=== PATIENT | male | born 1985 | race Asian ===

== ENCOUNTER 2021-12-06 16:38 | Emergency (ER) | payer MEDICAID ==
[~2021-12-06] VITALS: Ht 172.7 cm; Wt 71.0 kg
[2021-12-06 18:53] VITALS: BP 133/91
== END 2021-12-07 02:53 | disposition left against medical advice (07) ==
LOC: ER 16:43
DX: K62.5 Hemorrhage of anus and rectum (principal); Z53.21 Procedure and treatment not carried out due to patient leaving prior to being seen by health care provider

== ENCOUNTER 2021-12-07 04:09 | Emergency (ER) | payer MEDICAID ==
[~2021-12-07] VITALS: Ht 172.7 cm; Wt 71.0 kg
[2021-12-07] MEDS ORDERED: normal saline 1000ML IV soln IVB ONE (04:50)
[2021-12-07] MEDS ORDERED: iohexol 300mg/ml 100ml inj. ONE (05:05)
--- NOTE | 2021-12-07 05:45 | NUR ---
Given sugar in rectum - patient hemorrhoids observed mild-moderately shrinking from initial assessment. Doctor notified and given order to remove now.
--- NOTE | 2021-12-07 06:30 | NUR ---
FIRST CONTACT WITH PT, FOUND SUPINE IN BED. NO DISTRESS, AWAITING LAB RESULTS.
[2021-12-07 07:20] LABS: BASOPHILS % (AUTO) 0.2 % (0-1); EOSINOPHILS # (AUTO) 0.1 X10'3 (0-0.9); EOSINOPHILS % (AUTO) 2.8 % (0-6); HEMOGLOBIN 14.1 g/dl (14.0-17.9); MEAN CORPUSCULAR HGB CONC 33.6 g/dL (33.0-36.5); MEAN CORPUSCULAR VOLUME 86.5 FL (78-98); MEAN PLATELET VOLUME 9.9 FL (7.4-10.4); MONOCYTES # (AUTO) 0.4 X10'3 (0-0.9); MONOCYTES % (AUTO) 10.2 % (2-12); NEUTROPHILS # (AUTO) 2.4 X10'3 (1.8-7.7); NEUTROPHILS % (AUTO) 61.8 % (42-75); PLATELET COUNT 151 X10'3 (140-440); RED BLOOD COUNT 4.86 X10'6 (4.70-6.10); WHITE BLOOD COUNT 3.9 X10'3 (4.5-11.0)
[2021-12-07 07:47] LABS: ALANINE AMINOTRANSFERASE 24 U/L (12-78); ALBUMIN 3.5 G/DL (3.4-5.0); ALKALINE PHOSPHATASE 65 IU/L (46-116); ANION GAP 5 (8-16); ASPARTATE AMINO TRANSFERASE 33 U/L (10-37); BILIRUBIN,TOTAL 0.4 MG/DL (0.1-1.0); BLOOD UREA NITROGEN 21 MG/DL (7-18); BUN/CREATININE RATIO 19.4 (5.4-32.0); CALCIUM 8.4 MG/DL (8.5-10.1); CHLORIDE 108 MMOL/L (99-107); CREATININE 1.08 MG/DL (0.60-1.10); GLUCOSE 85 MG/DL (70-104); POTASSIUM 4.4 MMOL/L (3.5-5.1); SODIUM 140 MMOL/L (135-145); TOTAL CARBON DIOXIDE 26.8 MMOL/L (24-32); eGFR 78 ML/MIN
--- NOTE | 2021-12-07 08:00 | NUR ---
spoke with pt's friend regarding poc and pt status, verbal consent given from pt. all questions answered at this time.
[2021-12-07 09:03] VITALS: BP 128/64
== END 2021-12-07 09:04 | disposition home or self-care (01) ==
LOC: ER 04:09
DX: K64.4 Residual hemorrhoidal skin tags (principal); K62.89 Other specified diseases of anus and rectum
CPT/HCPCS: 36415; 74177; 80053; 85025; 99285; J7030; Q9967